=== PATIENT | female | born 1995 | race Two or more races ===

== ENCOUNTER 2016-05-11 15:56 | Outpatient (CLI) | payer MEDICAID ==
[2016-05-11 16:19] LABS: URINE BILIRUBIN NEGATIVE (NEGATIVE); URINE BLOOD NEGATIVE (NEGATIVE); URINE GLUCOSE (UA) NEGATIVE (NEGATIVE); URINE LEUKOCYTE ESTERASE NEGATIVE (NEGATIVE); URINE NITRITE NEGATIVE (NEGATIVE); URINE PROTEIN NEGATIVE (NEGATIVE); URINE UROBILINOGEN NORMAL (0-1 mg/dl)
[2016-05-11 16:21] LABS: URINE APPEARANCE CLEAR; URINE COLOR STRAW
== END 2016-05-11 17:10 | disposition home or self-care (01) ==
LOC: FBC 15:56 → FBCOUT 15:56
PROVIDERS: ATTEND Family Medicine
DX: O26.893 Other specified pregnancy related conditions, third trimester (principal); R10.30 Lower abdominal pain, unspecified; Z3A.32 32 weeks gestation of pregnancy
CPT/HCPCS: 81003; 59025; 81002; G0463

== ENCOUNTER 2016-06-13 19:30 | Outpatient (CLI) | payer MEDICAID ==
[2016-06-13 19:53] VITALS: BMI 29.2
--- NOTE | 2016-06-13 21:22 | PDOC36 ---
Provider Note Subject: Presented to [facility] with UC's. Not in labor, CAT 1 FHT and vssaf. Has vag yeast infection. Rx given. F/U with PCP.
== END 2016-06-13 21:25 | disposition home or self-care (01) ==
LOC: FBCOUT 19:30 → FBC 19:30 → FBCOUT 21:25
PROVIDERS: ATTEND Family Medicine
DX: O47.9 False labor, unspecified (principal); Z3A.00 Weeks of gestation of pregnancy not specified
CPT/HCPCS: 59025; 81002; G0463

== ENCOUNTER 2016-06-26 08:44 | Inpatient (IN) | payer MEDICAID ==
[2016-06-26] MEDS ORDERED: OXYTOCIN IN LR 500 ML IV ONE ×2 (09:30→10:14)
[2016-06-26 10:08] VITALS: BMI 28.9
[2016-06-26] MEDS ORDERED: OXYTOCIN 10 UNITS/ML VIAL ONE (10:13)
[2016-06-26] MEDS ORDERED: MINERAL OIL 25 ML BOT ONE (10:14)
[2016-06-26] MEDS ORDERED: PUMP TUBING ONE (10:14)
[2016-06-26] MEDS ORDERED: LIDOCAINE 1% (PRES FREE) 30 ML VIAL ONE (10:14)
[2016-06-26] MEDS ORDERED: LIDOCAINE Viscous 2% 15 ML UDCUP ONE (10:14)
[2016-06-26] MEDS ORDERED: SODIUM CHLORIDE 0.9% FLUSH 10 ML ONE (10:15)
[2016-06-26] MEDS ORDERED: IV START KIT ONE (10:15)
--- NOTE | 2016-06-26 10:16 | PCMAN ---
OB Admission Note - History : 3 Term: 2 Livin EDC:: 07/02/16 Gestational Age (weeks): 39 Days (#/7): 1 Admit Cervical Dilation:: 3 Admit Cervical Effacement (%):: 50 Admit Station:: -3 Admit Presentaton:: vertex, confirmed by u/s by RN Membrane Status: Ruptured Rupture (Date): 06/26/16 Rupture (Time): 00:00 Membranes Comment:: clear Contractions: No Heart Rate:: 135 (mod vivek/+accels/no decels) Status:: Cat 1 EFW:: 7lb Summary of Course:: Uncomplicated course. OBHx: 2009 @ 41w, 7lb 2011 @ 41w, 8lb Dating Hx: LMP 09/26/15, [facility]QU[facility] 07/02/16 dating u/s 01/03/16 13w6d [facility] 07/04/16 anatomy u/s 02/01/16 18w2d [facility] 07/02/16, choroid plexus cyst repeat u/s 03/05/16 23w0d [facility] 07/02/16, normal anatomy scan - Labs Blood Type: O (+) positive Rubella Status: Immune GBS Status: Positive Abnormal Labs: Abnormal Genetic Screening (abnormal quad, normal NIPT) - Review of Systems +LOF at midnight, clear fluid No ctx, good FM, no VB No WILL, vision changes, epigastric pain, edema - Physical Exam General: Afebrile Psych/Mental Status: Mood/Affect Appropriate, Judgment/Insight Intact Neurological: Grossly Intact, Alert HEENT: Atraumatic, EOMI Lungs: Clear to Auscultation Bilaterally, Normal Air Movement Cardiovascular: Regular Rate and Rhythm, Normal S1, Normal S2 Abdomen: Normal Bowel Sounds Genitourinary: Normal Female Genitalia Extremities: No Edema - Problems (1) Premature rupture of membranes Status: Acute Code: O42.90Assessment/Plan: 21 yo @ 39w1d, PROM at midnight. 1. PROM: will augment labor with pitocin, consider AROM when head engaged in pelvis 2. FWB: Cat 1 3. GBS positive: will start PCN 4. Pain: declines meds
[2016-06-26] MEDS: LACTATED RINGERS 1,000 ML IV SCH ×3 (10:55→22:45)
[2016-06-26] MEDS: OXYTOCIN IN LR 500 ML IV PRN ×6 (11:14→22:01)
[2016-06-26] MEDS ORDERED: PENICILLIN G POTASSIUM 5 MMU in NS 0.9% (MINI-BAG PLUS) 100 ML IV ONE (11:16)
[2016-06-26] MEDS ORDERED: PENICILLIN G POTASSIUM 5 MMU VIAL ONE (11:18)
[2016-06-26] MEDS ORDERED: NS 0.9% (MINI-BAG PLUS) 100 ML IV ONE (11:23)
[2016-06-26 11:54] LABS: HEMATOCRIT 34.1 % (37.0-47.0); HEMOGLOBIN 11.1 gm/l (12.0-16.0); MEAN CELL VOLUME 80.8 fl (81.0-99.0); MEAN CORPUSCULAR HEMOGLOBIN 26.3 pg (27.0-31.0); MEAN CORPUSCULAR HGB CONC 32.6 g/dl (33.0-37.0); RED CELL DISTRIBUTION WIDTH 14.7 % (11.5-14.5)
[2016-06-26] MEDS ORDERED: PENICILLIN G 3 MIL UNIT PREMIX 50 ML IV ONE ×3 (15:12→19:40)
[2016-06-26] MEDS: PENICILLIN G 3 MIL UNIT PREMIX 3 MMU in Premix (D5W) 50 ml 1 EACH IV SCH ×3 (15:28→23:42)
--- NOTE | 2016-06-26 23:15 | PDOC36 ---
Provider Note Subject: S: Pt comfortable, only feeling some cramping. pain 09/20. O: 98 108/58 73 16 SVE: 350/-3 @ 1800, essentially unchanged from 9am FHT: baseline 125bpm/mod vivek/+accels [place]: q2-3min with pitocin at 20 A/P: 21 yo @ 39w3d, augmentation of labor for PROM. 1. prolonged rupture of membranes, now at 23h. Pt afebrile. Pitocin at 20U. Pt is requesting to eat and would like to rest. Will turn off pitocin, pt will eat/ shower/rest. Plan to restart pitocin in a few hours. 2. FWB Cat 1 3. GBS positve, rec'd abx, but will hold for now. 4. Pain: pt comfortable.
[2016-06-27] MEDS ORDERED: PENICILLIN G 3 MIL UNIT PREMIX 50 ML IV ONE ×2 (03:38→07:54)
[2016-06-27] MEDS: PENICILLIN G 3 MIL UNIT PREMIX 3 MMU in Premix (D5W) 50 ml 1 EACH IV SCH ×3 (03:54→18:06)
[2016-06-27] MEDS: OXYTOCIN IN LR 500 ML IV PRN ×4 (04:34→06:09)
--- NOTE | 2016-06-27 08:01 | PDOC36 ---
Provider Note Subject: assuming care note S:Resting this am. Reports in last hour some mild changes. Pit up to 8 after restart from last night at 0430 am. O: 112/54 P 75 T 98.1 SVE: /-1 FHT: 140's baseline, mod vivek, + accels, no decels [place]: q2-3min with pitocin at 8 A/P: 21 yo @ 39w4d, augmentation of labor for PROM. 1. prolonged rupture of membranes. Remains afebrile. CE checked this am with some changed. I noted still present forebag and this was ruptured. Continue with Pitocin at 8U and augment per contraction pattern. 2. FWB Cat 1 3. GBS positve, rec'd abx, but will hold for now. Restart when beginning to be active. 4. Pain: pt comfortable.
[2016-06-27] MEDS: LACTATED RINGERS 1,000 ML IV SCH ×3 (08:04→18:05)
[2016-06-27] MEDS ORDERED: PUMP TUBING ONE (09:30)
[2016-06-27] MEDS ORDERED: METHYLERGONOVINE MALEATE 0.2 MG/ML 1ML AMP IM ONE (11:46)
[2016-06-27] MEDS ORDERED: METHYLERGONOVINE MALEATE 0.2 MG/ML 1ML AMP IV ONE (11:46)
[2016-06-27] MEDS ORDERED: METHYLERGONOVINE MALEATE 0.2 MG/ML 1ML AMP IM PRN (11:48)
[2016-06-27] MEDS ORDERED: MISOPROSTOL 200 MCG TABLET PR ONE (12:20)
--- NOTE | 2016-06-27 12:37 | PCMDEL ---
Delivery Note - Labor 1st stage (hr/min):: 36 hours 2nd stage (hr/min):: 8 min 3rd stage (hr/min):: 4 min Total (hr/min):: 36 hours Pushed (hr/min):: 4 min - Delivery Delivery (Date): 06/27/16 Delivery (Time): 11:34 Infant Gender: Male Presentation: Cephalic Position: OA Umbilical Cord: 3 Vessel Delayed Cord Clamping:: < 1 min 1 Minute Total: 9 5 Minute Total: 9 Placenta:: intact EBL:: 800 Perineum:: Second degree perineal repaired in normal fashion with 3-0 vicryl. Anesthesia/Meds:: Local Length ROM:: 36 hours Comments:: Presented with PROM. Started on pitocin augmentation and progressed to 3 cm with little change. Rested 8 hours then restarted. Once became active went precipitously from 4 cm to complete and pushed quickly to delivery via . Immediately post with hemorrhage due to uterine atony. Controlled with pitocin augmentation and methergine x1. After repair cytotec was given to further control bleeding. EBL 800ml. Vigorous with delayed cord clamping x 60 sec. Active third stage with pitocin and fundal massage.
[2016-06-27] MEDS ORDERED: MAGNESIUM HYDROXIDE 30 ML UDCUP PO PRN (12:40)
[2016-06-27] MEDS ORDERED: BENZOCAINE/MENTHOL 60 APPLIC/BOT TP PRN (12:40)
[2016-06-27] MEDS ORDERED: OXYTOCIN IN LR 500 ML IV ONE (12:40)
[2016-06-27] MEDS: HYDROCODONE/ACETAMINOPHEN 5/325MG TABLET PO PRN ×2 (12:58→21:34)
[2016-06-27] MEDS: DOCUSATE SODIUM 100 MG CAPSULE PO PRN (12:58)
[2016-06-27] MEDS: IBUPROFEN 800 MG TABLET PO PRN ×2 (12:58→20:49)
[2016-06-28] MEDS: IBUPROFEN 800 MG TABLET PO PRN ×3 (03:31→19:58)
[2016-06-28] MEDS: HYDROCODONE/ACETAMINOPHEN 5/325MG TABLET PO PRN ×2 (03:31→14:48)
[2016-06-28 06:24] LABS: HEMOGLOBIN 7.4 gm/l (12.0-16.0)
[2016-06-28] MEDS: DOCUSATE SODIUM 100 MG CAPSULE PO PRN (08:21)
--- NOTE | 2016-06-28 16:32 | PDOC44 ---
- Subjective Day: 1 Reports Flatus, Reports Pain Tolerable, Reports , Reports Tolerating Regular Diet, Denies Nausea, Denies Vomiting - Objective Temp Pulse Resp BP Pulse Ox 98.3 F 75 16 104/54 06/28/16 14:40 06/28/16 14:40 06/28/16 14:40 06/28/16 14:40 Lab Results 06/28/16 06:00 Hgb 7.4 L D Hct 23.0 L Current Medications Generic Name Dose Route Start Last Admin Trade Name Freq PRN Reason Stop Dose Admin Acetaminophen/Hydrocodone Bitart 1 - 2 tab 06/27/16 12:40 06/28/16 14:48 [place] 5/325 PO 1 tab Q4H PRN Administration Pain (Moderate) Benzocaine/Menthol 1 applic 06/27/16 12:40 Dermoplast TP PRN PRN Patient Comfort Docusate Sodium 100 mg 06/27/16 12:40 06/28/16 08:21 Colace PO 100 mg DAILY PRN Administration Comfort Emollient Ointment 1 applic 06/27/16 12:40 [id number] TP PRN PRN sore nipples Ibuprofen 800 mg 06/27/16 12:40 06/28/16 12:28 Motrin PO 800 mg Q6H PRN Administration Pain (Mild) Magnesium Hydroxide 30 ml 06/27/16 12:40 Milk Of Magnesia PO BEDTIME PRN Constipation Sodium Chloride 10 ml 06/27/16 12:40 06/27/16 20:49 Normal Saline 10ml Flush IV 10 ml PRN PRN Administration IV Flush - Physical Exam General: Afebrile, No Acute Distress Psych/Mental Status: Mood/Affect Appropriate, Bonding Well Neurological: Alert, Oriented x 4 Lungs: Clear to Auscultation Bilaterally Cardiovascular: Regular Rate and Rhythm, Murmur (soft 2/6 systolic murmur) Breast: Nipples Intact Fundus: Firm, Midline Extremities: Full ROM, No Edema, No Tenderness Skin: Normal Color, Warm, Dry, Intact, No Rash - Problems:Assessment/Plan (1) Normal spontaneous vaginal delivery Status: AcuteAssessment/Plan: PPD 1. Nl exam and vitals. +BF. -routine pp care with support (2) Anemia due to blood loss, acute Status: AcuteAssessment/Plan: EBL 800cc, s/p Pit, Cytotec, Methergine. Asymptomatic but with mild systolic murmur. -will start iron tabs now Disposition: Anticipate DC Home Tomorrow
[2016-06-28] MEDS: LANOLIN 50 APPLIC/7G TUBE TP PRN (18:27)
[2016-06-28] MEDS: FERROUS SULF (45 Fe) SR 1 EACH TAB.SR PO SCH (21:45)
[2016-06-29] MEDS: IBUPROFEN 800 MG TABLET PO PRN (03:22)
[2016-06-29] MEDS: HYDROCODONE/ACETAMINOPHEN 5/325MG TABLET PO PRN (03:22)
[2016-06-29 08:20] VITALS: BP 98/50
[2016-06-29] MEDS: DOCUSATE SODIUM 100 MG CAPSULE PO PRN (08:22)
[2016-06-29] MEDS: FERROUS SULF (45 Fe) SR 1 EACH TAB.SR PO SCH (09:02)
[2016-06-29] MEDS ORDERED: METHYLERGONOVINE MALEATE 0.2 MG/ML 1ML AMP IM ONE (09:32)
[2016-06-29] MEDS ORDERED: MISOPROSTOL 200 MCG TABLET PO ONE (09:32)
--- NOTE | 2016-06-29 11:09 | PDOC39B ---
Hospital Course: ADMIT DATE: 06/26/16 DISCHARGE DATE: 06/29/16 ADMISSION DIAGNOSES: Premature rupture of membranes PROCEDURES: Normal Spontaneous Vaginal Delivery HISTORY OF PRESENT ILLNESS/HOSPITAL COURSE: 21 year old G3 T2 L2 at 39 weeks 2 days presented with PROM. She was augmented with Pitocin and progressed to a normal spontaneous vaginal delivery. By day of discharge the patient is ambulating, eating, voiding, and passing flatus without difficulty. Pain is controlled and lochia is appropriate. She is . - Physical Exam Vital Signs: Temp Pulse Resp BP Pulse Ox 98.2 F 63 16 98/50 06/29/16 08:16 06/29/16 08:16 06/29/16 08:16 06/29/16 08:16 General: Afebrile, No Acute Distress Neurological: Alert, Oriented x 4 Lungs: Clear to Auscultation Bilaterally Cardiovascular: Regular Rate and Rhythm Fundus: Firm, Midline Extremities: Full ROM, No Edema Skin: Normal Color, Warm, Dry, Intact, No Rash - Discharge Diagnosis (1) Normal spontaneous vaginal delivery Status: AcuteAssessment/Plan: PPD 2. Nl exam and vitals. +BF. (2) Anemia due to blood loss, acute Status: AcuteAssessment/Plan: EBL 800cc, s/p Pit, Cytotec, Methergine. Asymptomatic but had mild systolic murmur yesterday, today resolved. On iron tabs BID now. - Discharge Plan Condition: Good Disposition: Home Prescriptions: Docusate Sodium [COLACE 100 MG CAPSULE (SHF)] 100 mg PO BID PRN #60 cap PRN Reason: Constipation Ibuprofen [Motrin] 800 mg PO TID PRN #30 tablet PRN Reason: Pain FERROUS SULFATE (65 Fe) [IRON FERROUS SULFATE 325 MG TABLET (SHF)] 325 mg PO BID #60 tab Follow-Up: Matthew Umaña PA-C [Primary Care Provider] - In 6 weeks
[2016-06-29] MEDS: LANOLIN 50 APPLIC/7G TUBE TP PRN (11:29)
[2016-06-29] MEDS ORDERED: LACTATED RINGERS 1,000 ML ONE (13:46)
[2016-06-29] MEDS ORDERED: PUMP TUBING ONE (13:46)
== END 2016-06-29 12:45 | disposition home or self-care (01) | DRG 774 ==
LOC: FBCOUT 08:44 → FBC 08:45 → FBCOUT 09:17
PROVIDERS: ADMIT Family Medicine; ATTEND Family Medicine
PROC: 10E0XZZ Delivery of Products of Conception, External Approach (ICD-10-PCS; principal; 2016-06-27)
PROC: 0KQM0ZZ Repair Perineum Muscle, Open Approach (ICD-10-PCS; 2016-06-27)
PROC: 10907ZC Drainage of Amniotic Fluid, Therapeutic from Products of Conception, Via Natural or Artificial Opening (ICD-10-PCS; 2016-06-27)
DX: O42.12 Full-term premature rupture of membranes, onset of labor more than 24 hours following rupture (principal); O72.1 Other immediate postpartum hemorrhage; D62 Acute posthemorrhagic anemia; O99.43 Diseases of the circulatory system complicating the puerperium; Z37.0 Single live birth; O99.824 Streptococcus B carrier state complicating childbirth; O70.1 Second degree perineal laceration during delivery; O62.3 Precipitate labor; Z3A.39 39 weeks gestation of pregnancy; O90.81 Anemia of the puerperium; R01.1 Cardiac murmur, unspecified